=== PATIENT | male | born 1985 | race Caucasian/White ===

== ENCOUNTER 2020-06-18 21:12 | Emergency (ER) | payer BC ==
[~2020-06-18] VITALS: Ht 165.1 cm; Wt 76.7 kg
[2020-06-18 21:22] VITALS: Ht 165.1 cm; Wt 76.7 kg
[2020-06-18 23:31] LABS: BASOPHIL % 0.6 % (0.2-1.5); PLATELET COUNT 261 x10^3mcL (152-348); RED CELL DISTRIBUTION WIDTH 13.1 % (12.1-16.2)
[2020-06-19 00:23] LABS: CALCIUM 9.3 mg/dL (8.5-10.1); CARBON DIOXIDE 27.6 mmol/L (21-32); CHLORIDE SERUM 104 mmol/L (98-107); CREATININE SERUM 0.9 mg/dL (0.7-1.3); GFR1 > 60 mL/min; GLUCOSE SERUM 114 mg/dL (74-106); POTASSIUM SERUM 3.6 mmol/L (3.5-5.1); SODIUM SERUM 136 mmol/L (136-145)
[2020-06-19 00:24] LABS: ALKALINE PHOSPHATASE 105 U/L (46-116); ALT/SGPT 35 U/L (16-63); AST/SGOT 22 U/L (15-37); BILIRUBIN TOTAL 0.3 mg/dL (0.20-1.00); LIPASE 171 IU/L (73-393); TOTAL PROTEIN, SERUM 7.9 g/dL (6.4-8.2)
[2020-06-19 02:05] VITALS: BP 127/75
== END 2020-06-19 01:45 | disposition home or self-care (01) ==
LOC: ED 21:12
PROVIDERS: Emergency Medicine
DX: K29.70 Gastritis, unspecified, without bleeding (principal)